=== PATIENT | male | born 1995 | race Hispanic/Latino ===

== ENCOUNTER 2022-09-17 11:02 | Emergency (ER) | payer OTHER, BC ==
[2022-09-17] MEDS ORDERED: Boostrix 0.5 ML (Tdap) VIAL (>/=7 yrs of age) ONE (11:24)
[2022-09-17] MEDS ORDERED: Bacitracin 1 PK ONE (11:24)
== END 2022-09-17 13:25 | disposition home or self-care (01) ==
LOC: NAV ERS 11:02
DX: S93.401A Sprain of unspecified ligament of right ankle, initial encounter (principal); S81.811A Laceration without foreign body, right lower leg, initial encounter; S00.31XA Abrasion of nose, initial encounter; S30.810A Abrasion of lower back and pelvis, initial encounter; V89.2XXA Person injured in unspecified motor-vehicle accident, traffic, initial encounter; Z23 Encounter for immunization
CPT/HCPCS: 90471; 90715